=== PATIENT | female | born 1965 | race African-American/Black ===

== ENCOUNTER 2020-04-01 11:16 | Emergency (ER) | payer OTHER, SELFPAY ==
--- NOTE | ~2020-04-01 | XR_ITS ---
XR lumbar spine 2-3V DATE: 04/01/2020 12:52 INDICATION: Left low back pain for 1.5 weeks. No injury. TECHNIQUE: AP, lateral, coned lateral lumbosacral views COMPARISON: None FINDINGS: Normal alignment of the lumbar spine. No fracture or bone destruction or spondylolisthesis. The lumbar and included lower thoracic levels are intact. There is mild degenerative disc disease at L5-S1. The lumbar interspaces are well preserved. There is degenerative change at the apophyseal joints at L5-S1. The sacroiliac joints are intact. IMPRESSION: Mild degenerative disc disease and degenerative change at the apophyseal joints at L5-S1 Reviewed, dictated and finalized at location A. IMPRESSION: Mild degenerative disc disease and degenerative change at the apoph yseal joints at L5-S1
[2020-04-01 11:22] VITALS: BP 114/90; PULSE 98; RESP 18; TEMP 36.4; O2SAT 98
--- NOTE | 2020-04-01 12:53 | PC.NURSE ---
While in room asking pt for urine sample pt stands up and goes to grab some gloves off wall. I asked pt not to take our gloves because they are for staff. Pt states well I dont want to get COVID and continues to put gloves on.
[2020-04-01 13:28] LABS: Basophils Absolute Auto 0.1 K/mm3 (0.0-0.1); Basophils Percent Auto 1.3 % (0.2-1.2); Eosinophils Absolute Auto 0.1 K/mm3 (0-0.3); Hematocrit 42.8 % (37.0-47.0); Hemoglobin 14.8 g/dL (12.0-15.0); Immature Granulocyte Absolute 0.01 K/mm3 (0.00-0.031); Immature Granulocyte Percent A 0.1 % (0-0.5); Lymphocytes Percent Auto 26.5 % (18.3-44.2); Mean Corpuscular HGB Conc 34.6 g/dl (32-36); Mean Corpuscular Hemoglobin 30.4 pg (26-34); Mean Corpuscular Volume 87.9 fl (80-100); Mean Platelet Volume 9.8 fl (7.4-10.4); Monocytes Absolute Auto 0.5 K/mm3 (0.1-0.6); Monocytes Percent Auto 7.5 % (2.6-8.5); Neutrophils Absolute Auto 4.6 K/mm3 (1.3-6.7); Neutrophils Percent Auto 63.6 % (45.5-73.1); Platelet Count Result 252 k/mm3 (150-375); Red Blood Count 4.87 M/mm3 (4.2-5.4); Red Cell Distribution Width 13.6 % (11.5-14.5); White Blood Count 7.2 K/mm3 (4.5-10.0)
[2020-04-01] MEDS: KETOROLAC (*BKC) 60 MG/2 ML VIAL 30 MG IM (13:28)
[2020-04-01] MEDS: predniSONE 20 MG TABLET 60 MG PO (13:28)
[2020-04-01 13:38] LABS: Potassium 3.4 mmol/L (3.4-5.0)
[2020-04-01 13:45] LABS: Anion Gap 5 mmol/L (8-16); Blood Urea Nitrogen 10 mg/dL (7-17); CRP < 0.5 mg/dL (<1.0); Calcium 8.4 mg/dL (8.4-10.2); Carbon Dioxide 29 mmol/L (22-30); Chloride 108 mmol/L (98-107); Estimated CRCL calculation 81 ml/min; Estimated Glomerular Filt Rate > 60; Glucose 82 mg/dL (65-105); Sodium 142 mmol/L (137-145)
[2020-04-01 13:45] LABS: Add Urine Microscopic? YES; Appearance Urine Clear (Clear); Bacteria Urine Trace /hpf; Bilirubin Urine Negative (Negative); Blood Urine 1+ (Negative); Color Urine Yellow (Yellow); Glucose Urine UA Negative (Negative); Ketones Urine Negative (Negative); Leukocyte Esterase Ur Negative LEU/UL (Negative); Nitrate Urine Negative (Negative); Protein Urine Negative (Negative); Squamous Epithelial Cell Urine Few /hpf (Few); Urobilinogen Urine Negative mg/dL (<2.0); WBC Urine 0-3 /hpf
--- NOTE | 2020-04-01 13:46 | PC.NURSE ---
While in pts room getting ready to give Tramadol shot, pt asked me to stop for a minute. I informed pt that all i had done was clean her arm with a alcohol swab. I waited a few seconds and then went to position pts arm for the shot, pt then states No you are not about to do me like that . I asked pt what she was meaning and also explained that I would not give her a shot without countdown or letting her know before I did it. Pt states nope, bye get out of here, I want someone else to give me the shot . I then called Beverly RN to come into room so she could give the medications to pt. While i was waiting in room I noticed some blood spots ( from tech getting blood from pt) on counter so i took out an alcohol wipe and started to clean the area. Pt asked what I was doing and I explained to pt that i had seen some blood and was cleaning it up. Pt then states whose blood is it? I replied yours from when the tech came and took some, pt states i was never over there I informed pt that the tech uses the counter to rest materials and that sometimes blood gets on counter. Pt states who cleans a counter with an alcohol wipe, get out of here I dont know what you are doing, I dont want to get COVID. At this time Beverly HERNANDEZ comes into room and i explain what medication i have to give pt. this RN exits room.
--- NOTE | 2020-04-01 14:30 | ED.BACK ---
HPI - Back Pain/Injury General Chief Complaint: Back Pain/Injury Stated Complaint: multiple c/o pain Time Seen by Provider: 04/01/20 12:09 Source: patient Mode of arrival: ambulatory Limitations: no limitations History of Present Illness HPI Narrative: 54-year-old with a history of hypertension here with complaints of low back pain, right elbow and right knee pain for past few days. Patient denies any trauma. No history of any lifting injuries. She states that the pain is shooting into her left no history of bladder or bowel incontinence. She denies any urinary symptoms. Thigh area for past few days. MD elicited complaint: back pain Onset (ago): day(s) (2) Timing: constant Severity: moderate Quality: aching Location: lumbar spine Radiation: buttocks (left) Exacerbating factors: none Associated symptoms: denies other symptoms Related Data Allergies Allergy/AdvReac Type Severity Reaction Status Date / Time haloperidol Allergy Intermediate Anaphylactic Verified 06/12/18 16:14 Shock Review of Systems Review of Systems: All systems reviewed & are unremarkable except as noted in HPI and below Constitutional: Constitutional: Reports no additional constitutional complaints ENT: Reports system reviewed and no additional complaints, except as documented Cardiovascular: Cardiovascular: Reports no additional cardiovascular complaints Respiratory: Respiratory: Reports no additional respiratory complaints Gastrointestinal: Gastrointestinal: Reports as per HPI Musculoskeletal: Musculoskeletal: Reports no additional musculoskeletal complaints Neurologic: Reports system reviewed and no additional complaints, except as documented Endocrine: Endocrine: Reports no additional endocrine complaints PMFSH Social History Social History Gender identity (if verbalized by the patient): Female Exam Narrative: Exam Narrative: GENERAL: Well-appearing, well-nourished, and in no acute distress. HEAD: Normocephalic, atraumatic. EYES: PERRLA and EOMI. ENT: Nares clear, no rhinorrhea or epistaxis. Mucous membranes moist. NECK: Supple. CHEST: Clear to auscultation. No respiratory distress. HEART: Regular rate and rhythm. No murmur heard. Normal peripheral pulses. ABDOMEN: Soft, nontender, nondistended, normal active bowel sounds. EXTREMITIES: Normal range of motion. No edema. SKIN: Warm, dry, no rash. NEURO: No focal deficits. Alert and oriented x3. PSYCH: Normal mood and affect. Course Course Emergency Course: Inform patient about her lab work, x-ray findings . Vital Signs Vital signs: Vital Signs Temperature 36.4 C 04/01/20 11:22 Pulse Rate 98 04/01/20 11:22 Respiratory Rate 18 04/01/20 11:22 Blood Pressure 114/90 04/01/20 11:22 Pulse Oximetry 98 04/01/20 11:22 Temperature 36.4 C 04/01/20 11:22 Pulse Rate 98 04/01/20 11:22 Respiratory Rate 18 04/01/20 11:22 Blood Pressure 114/90 04/01/20 11:22 Pulse Oximetry 98 04/01/20 11:22 MDM - Back Pain/Injury Lab Data Result diagrams: 04/01/20 13:19 04/01/20 13:19 Labs: Lab Results 04/01/20 04/01/20 04/01/20 Range/Units 13:19 13:19 13:30 WBC 7.2 (4.5-10.0) K/mm3 RBC 4.87 (4.2-5.4) M/mm3 Hgb 14.8 (12.0-15.0) g/dL Hct 42.8 (37.0-47.0) % MCV 87.9 (80-100) fl MCH 30.4 (26-34) pg MCHC 34.6 (32-36) g/dl RDW 13.6 (11.5-14.5) % Plt Count 252 (150-375) k/mm3 MPV 9.8 (7.4-10.4) fl Immature Gran % (Auto) 0.1 (0-0.5) % Neut % (Auto) 63.6 (45.5-73.1) % Lymph % (Auto) 26.5 (18.3-44.2) % Tillman % (Auto) 7.5 (2.6-8.5) % Eos % (Auto) 1.0 (0-4.4) % Baso % (Auto) 1.3 H (0.2-1.2) % Lymph # (Auto) 1.90 (0.9-3.2) K/mm3 Tillman # (Auto) 0.5 (0.1-0.6) K/mm3 Eos # (Auto) 0.1 (0-0.3) K/mm3 Baso # (Auto) 0.1 (0.0-0.1) K/mm3 Abs Immat Gran (auto) 0.01 (0.00-0.031) K/mm3 Absolute Neuts (auto) 4.6 (1.3-6.7) K/mm3 Abso
[2020-04-01 14:57] VITALS: BP 147/94; PULSE 81; RESP 22; O2SAT 100
== END 2020-04-01 15:02 | disposition home or self-care (01) ==
PROVIDERS: Emergency Provider Family Medicine
DX: M54.5 Low back pain (principal); I10 Essential (primary) hypertension; M51.37 Other intervertebral disc degeneration, lumbosacral region
CPT/HCPCS: 36415; 72100; 80048; 81001; 85025; 86140; 96372; 99283; J1885; J7512

== ENCOUNTER 2023-06-06 13:47 | Outpatient (CLI) | payer OTHER, SELFPAY ==
--- NOTE | 2023-06-06 17:34 | WPDPFTINT ---
PFT Procedure Performed PFT Procedure Performed Spirometry with Pre/Post Bronchodilator Plethysmography (Lung Vol) Diffusing Cap (DLCO) Flow Vol Loop PFT Interpretation This is a pulmonary function test with pre and post-bronchodilator spirometry, plethysmography and diffusing capacity. The test was performed and results interpreted in accordance with the 2019 and 2005 ATS/ERS Task Force guidelines respectively using the Global Lung Function Initiative-2012 reference equations. Patient demonstrated good effort and cooperation. Reproducibility criteria were met. The quality of the pre bronchodilator spirometry maneuver was Grade A and post bronchodilator spirometry maneuver was Grade A. Of note, patient had difficulty with spirometry testing. Attempted 7 trials pre in 5 trials post. Patient felt shortness of breath throughout all testing. Findings: Spirometry: There is decreased maximal expiratory airflow at all lung volumes. The contour the inspiratory flow tracing is normal. The pre bronchodilator FVC is 1.65 L, 54% predicted. The pre bronchodilator FEV1 is 1.11 L, 46% predicted. The pre bronchodilator FEV1: FVC ratio 68%. The post bronchodilator FVC is 1.80 L, representing a 9% increase. The post bronchodilator FEV1 is 0.97 L, representing a 13% decrease. The post bronchodilator FEV1: FVC ratio is 54%. Plethysmography: The total lung capacity is 5.33 L, 113% predicted. The functional residual capacity is 3.90 L, 133% predicted. The residual volume is 3.62 L, 193% predicted. Diffusing capacity: The diffusing capacity unadjusted for hemoglobin and carboxyhemoglobin is 6.80, 30% predicted. The diffusing capacity adjusted for alveolar volume is 2.31, 52% predicted. Impression: There is a severe obstructive abnormality without significant improvement after inhaling a single dose of albuterol. The increase in residual volume is consistent with air trapping from an obstructive abnormality. The diffusing capacity unadjusted for hemoglobin and carboxyhemoglobin is severely decreased and remains moderately decreased when adjusted for alveolar volume.
== END 2023-06-06 13:48 | disposition home or self-care (01) ==
PROVIDERS: PCP Family Medicine; Visit Provider Family Medicine
DX: J44.9 Chronic obstructive pulmonary disease, unspecified (principal); R94.2 Abnormal results of pulmonary function studies
CPT/HCPCS: 94060; 94726; 94729